=== PATIENT | male | born 1970 | race Caucasian/White ===

== ENCOUNTER → 2022-01-05 | Outpatient (CLI) | payer OTHER ==
--- NOTE | 2022-01-05 16:49 | RAD ---
EXAMINATION: US ABDOMEN COMPLETE 01/05/2022 10:42 AM INDICATION: Epigastric pain TECHNIQUE: Holder scale and color Doppler ultrasound images of the abdomen were obtained. COMPARISON: None. FINDINGS: Liver: The liver is normal in size measuring 14 cm in length. Normal hepatic echogenicity. No focal liver lesion. Gallbladder: The gallbladder is normal in caliber. No cholelithiasis or sludge. The gallbladder wa ll is normal in thickness measuring 1.2 mm. Bile ducts: The common bile duct is normal measuring 4 mm. No intrahepatic biliary duct dilatation. Kidneys: The right kidney measures 11.5 x 4.5 x 4.0 cm. The left kidney measures 10.6 x 5.1 x 5.4 cm . Normal cortical thickness and echogenicity bilaterally. No hydronephrosis. Spleen: Spleen is normal measuring 9 cm. Other: Abdominal aorta and inferior vena cava are normal where visualized. The pancreas is normal wh ere visualized. IMPRESSION: Normal abdominal ultrasound. Electronically signed by: Sandra Erickson MD (01/05/2022 4:47 PM) [id number]
== END ==
LOC: US 10:37
PROVIDERS: ATTEND Internal Medicine
DX: R10.13 Epigastric pain (principal)
CPT/HCPCS: 76700